=== PATIENT | female | born 1955 | race Caucasian/White ===

== ENCOUNTER 2017-02-04 11:34 | Emergency (ER) | payer MEDICARE ==
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
[2017-02-04] MEDS ORDERED: Ketorolac INJ* 30 MG/ML 1 ML VIAL IM ONE (12:51)
[2017-02-04 13:42] VITALS: BP 202/92
== END 2017-02-04 13:42 | disposition home or self-care (01) ==
LOC: UCCORT 11:34
DX: M54.2 Cervicalgia (principal); M54.5 Low back pain; G89.21 Chronic pain due to trauma; Z88.8 Allergy status to other drugs, medicaments and biological substances; F17.210 Nicotine dependence, cigarettes, uncomplicated
CPT/HCPCS: 96372; 99212; G0463; J1885

== ENCOUNTER 2017-05-07 20:50 | Emergency (ER) | payer MEDICARE ==
[2017-05-07] MEDS ORDERED: Ketorolac INJ* 60 MG/2 ML VIAL IM ONE (21:00)
--- NOTE | 2017-05-07 21:06 | UC ---
Lower Extremity/Ankle HPI - HPI Summary HPI Summary: 62 yo F states she stepped in a hole and twisted her left foot, c/o pain and inability to bear weight since the injury at approx 4:30pm. - History of Current Complaint Stated Complaint: LEFT FOOT INJURY Time Seen by Provider: 05/07/17 20:56 Hx Obtained From: Patient, Family/Health Coordinator Hx Last Menstrual Period: n/a Onset/Duration: Sudden Onset, Lasting Hours, Still Present Severity Initially: Moderate Severity Currently: Moderate Pain Intensity: 10 Pain Scale Used: 0-10 Numeric Aggravating Factor(s): Standing, Ambulation Alleviating Factor(s): Nothing Able to Bear Weight: No - Allergies/Home Medications Allergies/Adverse Reactions: Allergies Allergy/AdvReac Type Severity Reaction Status Date / Time Benzonatate AdvReac Severe Swelling Verified 05/07/17 20:59 Home Medications: Home Medications Cyanocobalamin [B-12 Compliance Injection] 1,000 mcg IJ 05/07/17 [History] Gabapentin CAP(*) [Neurontin 100 mg CAP(*)] 100 mg PO TID 05/07/17 [History Confirmed 05/07/17] PMH/Surg Hx/FS Hx/Imm Hx Previously Healthy: No - skin cancer GI/ History: Gastroesophageal Reflux - Surgical History Surgical History: Yes Surgery Procedure, Year, and Place: neck fusion csp. HYSTERECTOMY, NASAL SURGERY, FX LEFT WRIST - Family History Known Family History: Positive: Cardiac Disease, Diabetes - Social History Lives: With Family Alcohol Use: None Substance Use Type: None Smoking Status (MU): Current Every Day Smoker Type: Cigarettes Amount Used/How Often: 1/2 PPD Length of Time of Smoking/Using Tobacco: 41 yrs Have You Smoked in the Last Year: Yes Household Exposure Type: Cigarettes Review of Systems Constitutional: Negative Skin: Negative Eyes: Negative ENT: Negative Respiratory: Negative Cardiovascular: Negative Gastrointestinal: Negative Genitourinary: Negative Motor: Negative Neurovascular: Negative Musculoskeletal: Arthralgia Neurological: Negative Psychological: Negative All Other Systems Reviewed And Are Negative: Yes Physical Exam Triage Information Reviewed: Yes Appearance: Well-Appearing, Well-Nourished, Pain Distress Vital Signs: BP 156/80 noted Vital Signs Reviewed: Yes Eyes: Positive: Conjunctiva Clear ENT: Positive: Hearing grossly normal. Negative: Muffled/hoarse voice Neck: Positive: Supple Respiratory: Positive: Lungs clear, Normal breath sounds, No respiratory distress Cardiovascular: Positive: RRR, No Murmur, Pulses Normal, Brisk Capillary Refill Musculoskeletal: Positive: Strength Intact, ROM Intact, Other: - tender lat malleolus, and base 5th metatarsal; pulses, sensation intact; pain right low lumbar paraspinous Neurological: Positive: Alert, Muscle Tone Normal Psychological Exam: Normal Skin Exam: Normal Re-Evaluation - Re-Evaluation First Eval Re-Evaluation Time: 10:10 - pain improved with toradol Change: Improved Lower Extremity Course/Dx - Differential Dx/Diagnosis Differential Diagnosis/HQI/PQRI: Contusion, Fracture (Closed), Sprain, Strain Provider Diagnoses: ankle sprain, foot sprain, elevated BP without dx HTN Discharge - Discharge Plan Condition: Stable Disposition: HOME Patient Education Materials: Ankle Sprain (ED), Foot Sprain (ED) Referrals: Denilson Taylor MD [Medical Doctor] - 7 Days (if no improvement ) Jonathan Shaikh MD [Primary Care Provider] -
[2017-05-07 21:12] VITALS: BP 156/80
--- NOTE | 2017-05-07 21:53 | RAD ---
Indication: Left ankle pain. 3 views of left foot demonstrates no fracture. No other bone or joint abnormalities noted. IMPRESSION: No fracture of the left foot is noted.
--- NOTE | 2017-05-07 21:54 | RAD ---
Indication: Left ankle injury 4 views of left ankle demonstrates no fracture. No other bone or joint abnormality is noted. IMPRESSION: No fracture of the left ankle is noted.
== END 2017-05-07 22:38 | disposition home or self-care (01) ==
LOC: UCCORT 20:50
DX: S93.402A Sprain of unspecified ligament of left ankle, initial encounter (principal); S93.602A Unspecified sprain of left foot, initial encounter; W17.2XXA Fall into hole, initial encounter; R03.0 Elevated blood-pressure reading, without diagnosis of hypertension; F17.210 Nicotine dependence, cigarettes, uncomplicated
CPT/HCPCS: 96372; 99202; G0463; J1885

== ENCOUNTER 2017-12-08 19:06 | Emergency (ER) | payer MEDICARE ==
[2017-12-08 19:43] VITALS: BP 168/78
--- NOTE | 2017-12-08 19:59 | UC ---
FLU HPI - HPI Summary HPI Summary: Pt c/o gradual onset of nasal congestion, cough, chills, fatigue and generalized malaise X 2 days. - History of Current Complaint Chief Complaint: UCRespiratory Stated Complaint: FLU LIKE Time Seen by Provider: 12/08/17 19:41 Hx Last Menstrual Period: n/a ?: No Onset/Duration: Gradual Onset, Lasting Days, Still Present, Worse Since - onset Severity Currently: Moderate Severity Initially: Mild Associated Signs & Symptoms: Positive: Myalgia, Cough, Nasal Congestion, Headache Related Hx: Smoking - Allergy/Home Medications Allergies/Adverse Reactions: Allergies Allergy/AdvReac Type Severity Reaction Status Date / Time Benzonatate AdvReac Severe Swelling Verified 12/08/17 19:43 PMH/Surg Hx/FS Hx/Imm Hx Previously Healthy: Yes - Surgical History Surgical History: Yes Surgery Procedure, Year, and Place: neck fusion csp. HYSTERECTOMY, NASAL SURGERY, FX LEFT WRIST - Family History Known Family History: Positive: Cardiac Disease, Diabetes Negative: Respiratory Disease - Social History Lives: With Family Alcohol Use: None Substance Use Type: None Smoking Status (MU): Current Every Day Smoker Type: Cigarettes Amount Used/How Often: 1/2 PPD Length of Time of Smoking/Using Tobacco: 41 yrs Have You Smoked in the Last Year: Yes Household Exposure Type: Cigarettes Review of Systems Constitutional: Chills, Fatigue Skin: Negative Eyes: Negative ENT: Sinus Congestion Respiratory: Cough Cardiovascular: Negative Gastrointestinal: Negative Genitourinary: Negative Motor: Negative Neurovascular: Negative Musculoskeletal: Negative Neurological: Negative Psychological: Negative Is Patient Immunocompromised?: No All Other Systems Reviewed And Are Negative: Yes Physical Exam Triage Information Reviewed: Yes Appearance: Ill-Appearing Vital Signs: Initial Vital Signs Temp 98.6 F 12/08/17 19:39 Pulse 93 12/08/17 19:39 Resp 18 12/08/17 19:39 BP 168/78 12/08/17 19:39 Pulse Ox 96 12/08/17 19:39 Vital Signs Reviewed: Yes Eye Exam: Normal ENT Exam: Other ENT: Positive: Nasal congestion Dental Exam: Normal Neck exam: Normal Respiratory Exam: Other Respiratory: Positive: Decreased breath sounds Cardiovascular Exam: Normal Musculoskeletal Exam: Normal Neurological Exam: Normal Psychological Exam: Normal Skin Exam: Normal Flu Course/Dx - Differential Dx/Diagnosis Differential Diagnosis/HQI/PQRI: Bronchitis, Upper Respiratory Infection Provider Diagnoses: URI. Cough Discharge - Discharge Plan Condition: Stable Disposition: HOME Prescriptions: Dextromethorphan HBr [Tussin Cough] 15 mg PO Q6H PRN #100 ml PRN Reason: Cough Patient Education Materials: Viral Syndrome (ED), Cold Symptoms (ED) Referrals: Jonathan Shaikh MD [Primary Care Provider] - If Needed
== END 2017-12-08 20:23 | disposition home or self-care (01) ==
LOC: UCCORT 19:06
DX: J06.9 Acute upper respiratory infection, unspecified (principal); R05 Cough; Z72.0 Tobacco use
CPT/HCPCS: 87502; 99212; G0463

== ENCOUNTER 2018-02-05 10:25 | Day surgery (SDC) | payer MEDICARE ==
[~2018-02-05 10:25] MED LIST: Buffered Lidocaine 0.9% SYRIN* 5 ML/SYR SYRINGE INTRADERM ONE; Famotidine IV* 10 MG/ML 2 ML (20 mg) IV ONE
[2018-02-05] MEDS ORDERED: ceFAZolin 2 GM in 100 MLS NS (*) BAG IVPB ONE (10:27)
[2018-02-05] MEDS ORDERED: Buffered Lidocaine 0.9% SYRIN* 5 ML/SYR SYRINGE ONE (10:27)
[2018-02-05] MEDS ORDERED: Famotidine IV* 10 MG/ML 2 ML (20 mg) ONE (10:27)
[2018-02-05] MEDS ORDERED: Dexamethasone IV* 4 MG/ML 1 ML (4 MG) ONE (11:39)
[2018-02-05] MEDS ORDERED: Lidocaine 1%* 5 ML VIAL ONE ×2 (11:40→12:42)
[2018-02-05] MEDS ORDERED: Bupivacaine 0.25% SDV* 30 ML ONE (11:41)
[2018-02-05] MEDS ORDERED: Midazolam* 1 MG/ML 5 ML VIAL (5 MG) ONE (11:57)
[2018-02-05] MEDS ORDERED: fentaNYL* 50 MCG/ML 2 ML VIAL (100 MCG VIAL) ONE (12:10)
[2018-02-05] MEDS ORDERED: Lidocaine 2% PF * 5 ML VIAL ONE (12:13)
[2018-02-05] MEDS ORDERED: Propofol* 10 MG/ML 20 ML BTL IV PUSH ONE (12:13)
[2018-02-05] MEDS ORDERED: Ondansetron INJ* 2 MG/ML VIAL ONE (12:13)
[2018-02-05] MEDS ORDERED: Ketorolac INJ* 30 MG/ML 1 ML VIAL ONE (12:13)
[2018-02-05] MEDS ORDERED: ceFAZolin 1 GM VIAL(*) ONE (13:24)
[2018-02-05] MEDS ORDERED: oxyCODONE/Acetamin 5/325 MG* TAB PO PRN (13:58)
[2018-02-05] MEDS ORDERED: Naloxone* 0.4 MG/ML 1 ML VIAL IV PRN (13:58)
[2018-02-05] MEDS ORDERED: DiMENhydriNATE IV* 50 MG/ML VIAL IV PUSH PRN (13:58)
[2018-02-05 14:13] VITALS: BP 170/89
--- NOTE | 2018-02-05 22:17 | RAD ---
CPT II Codes: 6045F. Indication: Left fourth metatarsal head removal. Fluoroscopic services provided for referring physician. 6.2 seconds of fluoroscopy time was used. 7 spot images of the left foot demonstrates resection of the fourth metatarsal head. IMPRESSION: Fluoroscopic services provided for referring physician.
--- NOTE | 2018-02-05 22:17 | OP ---
DATE OF OPERATION: 02/05/18 - [facility] DATE OF : 59 SURGEON: Luciano Allan DPM ANESTHESIA: MAC local. PRE-OP DIAGNOSIS: Left 4th plantarflexed metatarsal. POST-OP DIAGNOSIS: Left 4th plantarflexed metatarsal. OPERATIVE PROCEDURE: Left 4th metatarsal head resection. ESTIMATED BLOOD LOSS: Less than 10 cc. IV FLUIDS: LR 1000 cc. DRAINS: None. SPECIMENS: Metatarsal head from the left fourth metatarsal. DESCRIPTION OF PROCEDURE: The patient was taken to the operating room and was placed in a supine position. Time-out was called and OR team agreed. The left foot was then blocked with 8 cc of 1% lidocaine plain in a [place] block fashion at the base of the left 4th metatarsal. The foot was then prepped and draped in a sterile manner. There was some question whether this site at the intractable plantar keratoma was directly under the 3rd or the 4th, it was in book as the 4th and to confirm it I went ahead and used a C-arm and an 18-gauge spinal needle. The 18-gauge spinal needle was introduced dorsally and down into the lesion which was localized around the submetatarsal area. The tip of the spinal needle went all the way to and through past the plantar keratoma plantarly. I then used a C-arm to confirm the site and it is indeed the submetatarsal 4 area that is the location in question, this confirms the site. I went ahead and exsanguinated the foot with an Esmarch bandage and the cuff was then inflated to 250 mmHg. I made a linear incision right over the 4th metatarsophalangeal joint followed by sharp and blunt dissection starting from the epidermis, dermis, subcutaneous tissue, down to the capsule. The capsule was identified and a linear incision was made over the capsule, careful not to transect the tendons. The tendons were left intact and then retracted away from the site. I went ahead and dissected down to the periosteum and the neck of the 4th metatarsal. To confirm the site, I went ahead and shot under C-arm that it is indeed the 4th metatarsal that we are operating on. I went ahead and cut the head of the 4th metatarsal at the level of the neck with a sagittal saw. This completes the procedure. The wound was then irrigated and once again confirmed it via C-arm that it was the 4th metatarsal head that was removed. I went ahead and closed the wound in a layered anatomical fashion. I used the combination of 3-0 Vicryl for the deeper subcutaneous tissues as well as the capsular closing and the 4-0 nylon for the skin. I injected a combination of 0.25% Marcaine plain and 8 mg of dexamethasone phosphate. I used about 7 cc. The cuff was deflated and the foot was then placed in a dry sterile dressing. The patient was taken to the recovery in stable condition, was later discharged in stable condition as well. I will see her in the office on Thursday. [id number]/CPS #: [id number] MTDD
== END 2018-02-05 14:40 | disposition home or self-care (01) ==
LOC: OR 10:25
PROVIDERS: ATTEND Podiatrist
DX: M21.6X2 Other acquired deformities of left foot (principal); I10 Essential (primary) hypertension; G47.33 Obstructive sleep apnea (adult) (pediatric); F17.210 Nicotine dependence, cigarettes, uncomplicated
CPT/HCPCS: 76001; 88304; 88311; J0690; J1100; J1885; J2250; J2405; J2704; J3010

== ENCOUNTER 2021-02-28 15:40 | Inpatient (IN) ==
[2021-02-28] MEDS ORDERED: Heparin 1,000 UNIT/ML 10 ml (10,000 UNITS) CATHLAB/DIALYSIS ONE (15:46)
[2021-02-28] MEDS ORDERED: VERAPAMIL 2.5 MG/ML 2 ML VIAL ** 5 mg/2 ml ONE (15:46)
[2021-02-28] MEDS ORDERED: Lidocaine 1% VIAL 10 MG/ML VIAL ONE (15:47)
[2021-02-28] MEDS ORDERED: Iohexol 350 (CONTRAST) 200 ML MDV IV ONE ×2 (15:47→16:00)
[2021-02-28] MEDS ORDERED: nitroGLYCERIN DRIP 0 MCG/0 ML BTL ONE (15:47)
[2021-02-28] MEDS ORDERED: Heparin 2 UNITS/ML 1000 mls 2,000 ML IV ONE (15:47)
[2021-02-28] MEDS ORDERED: Heparin - STEMI 5,000 UNITS/ML 1 ml VIAL IV ONE (15:47)
[2021-02-28] MEDS ORDERED: Midazolam 5 mg/5 ml VIAL 1 mg/ml 5 ml VIAL (5 mg) ONE (15:49)
[2021-02-28] MEDS ORDERED: diPHENhydraMINE IV 50 MG/ML 1 ml VIAL (BENADRYL) ONE (15:49)
[2021-02-28] MEDS ORDERED: Bivalirudin 250 MG VIAL ONE ×2 (16:12→17:13)
[2021-02-28] MEDS ORDERED: HYDROmorphone 1 MG/1 ML SYRINGE ONE (16:12)
[2021-02-28] MEDS ORDERED: Adenosine 3 MG/ML 2 ml VIAL (6 mg) ONE (16:16)
[2021-02-28 16:18] LABS: ABS Basophils 0.1 10^3/ul (0-0.2); ABS Eosinophils 0.2 10^3/ul (0-0.6); ABS Lymphocytes 2.7 10^3/ul (1.0-4.8); ABS Monocytes 0.6 10^3/ul (0-0.8); ABS Neutrophils 4.9 10^3/ul (1.5-7.7); Eosinophil % 1.8 %; Hematocrit 41 % (35-47); Hemoglobin 13.4 g/dL (12.0-16.0); Lymphocyte % 32.3 %; Mean Corpuscular HGB Conc 33 g/dL (31-36); Mean Corpuscular Hemoglobin 30 pg (27-31); Mean Corpuscular Volume 90 fL (80-97); Mean Platelet Volume 8.6 fL (7.4-10.4); Platelet Count 211 10^3/uL (150-450); Red Blood Count 4.53 10^6 /uL (3.70-4.87); Red Cell Distribution Width 15 % (10-15); White Blood Count 8.5 10^3/uL (3.5-10.8)
[2021-02-28] MEDS ORDERED: Phenylephrine IV 10 MG/ML 1 ml VIAL ONE (16:31)
[2021-02-28] MEDS ORDERED: Nitro 2% OINT (Nitroglycerin) 1 INCH/PAK ONE (16:35)
[2021-02-28 16:36] LABS: Troponin I 0.01 ng/mL (<0.03)
[2021-02-28 16:38] LABS: CKMB ng/mL 1.5 ng/mL (0.6-6.3)
[2021-02-28] MEDS ORDERED: Ondansetron 4 mg VIAL 2 MG/ML 2 ml VIAL ONE (16:40)
[2021-02-28 16:48] LABS: Activated Partial Thrombo Time 27.1 seconds (26.0-38.0); INR 0.96 (0.82-1.09)
[2021-02-28] MEDS ORDERED: Atropine 0.1 MG/ML 10 ml SYR (1 mg) ONE (16:52)
[2021-02-28 16:58] LABS: Albumin 4.1 g/dL (3.2-5.2); Albumin/Globulin Ratio 1.5 (1-3); Calcium 8.8 mg/dL (8.6-10.3); EGFR African American 76.3 (>60); Globulin 2.7 g/dL (2-4); Potassium 3.6 mmol/L (3.5-5.0); Total Bilirubin 0.3 mg/dL (0.2-1.0); Total Protein 6.8 g/dL (6.4-8.9)
[2021-02-28] MEDS ORDERED: Bivalirudin 250 MG in NS 0.9% 50 ML 50 ML IV SCH (18:00)
[2021-02-28 19:08] LABS: Troponin I 2.85 ng/mL (<0.03)
[2021-02-28] MEDS ORDERED: Ondansetron 4 mg VIAL 2 MG/ML 2 ml VIAL IV ONE (19:34)
[2021-02-28] MEDS ORDERED: Potassium Chlor 20 meq TAB.ER PO ONE (23:40)
[2021-03-01 00:22] LABS: Anion Gap 7 mmol/L (2-11); BUN/Creatinine Ratio 11.7 (8-20); Blood Urea Nitrogen 9 mg/dL (6-24); CO2 Carbon Dioxide 25 mmol/L (22-32); Calcium 8.9 mg/dL (8.6-10.3); Chloride 107 mmol/L (101-111); EGFR African American 91.3 (>60); EGFR Non-African American 75.5 (>60); Glucose 115 mg/dL (70-100); Magnesium 1.9 mg/dL (1.9-2.7); Sodium 139 mmol/L (135-145)
[2021-03-01 00:33] LABS: Troponin I 21.23 ng/mL (<0.03)
[2021-03-01 05:23] LABS: ABS Eosinophils 0.1 10^3/ul (0-0.6); ABS Lymphocytes 2.5 10^3/ul (1.0-4.8); ABS Monocytes 0.8 10^3/ul (0-0.8); ABS Neutrophils 5.1 10^3/ul (1.5-7.7); Eosinophil % 1.3 %; Hematocrit 37 % (35-47); Hemoglobin 12.2 g/dL (12.0-16.0); Lymphocyte % 29.8 %; Mean Corpuscular HGB Conc 33 g/dL (31-36); Mean Corpuscular Hemoglobin 30 pg (27-31); Mean Corpuscular Volume 90 fL (80-97); Mean Platelet Volume 8.4 fL (7.4-10.4); Platelet Count 184 10^3/uL (150-450); Red Blood Count 4.09 10^6 /uL (3.70-4.87); Red Cell Distribution Width 15 % (10-15); White Blood Count 8.6 10^3/uL (3.5-10.8)
[2021-03-01 05:34] LABS: Anion Gap 7 mmol/L (2-11); Blood Urea Nitrogen 9 mg/dL (6-24); CO2 Carbon Dioxide 23 mmol/L (22-32); Calcium 8.7 mg/dL (8.6-10.3); Chloride 109 mmol/L (101-111); Cholesterol 225 mg/dL; EGFR African American 94.1 (>60); EGFR Non-African American 77.8 (>60); Glucose 116 mg/dL (70-100); HDL Cholesterol 34.1 mg/dL; LDL Cholesterol 154 mg/dL; Potassium 4.1 mmol/L (3.5-5.0); Sodium 139 mmol/L (135-145); Triglycerides 184 mg/dL
[2021-03-01 05:38] LABS: Troponin I 22.12 ng/mL (<0.03)
[2021-03-01 07:56] LABS: Magnesium 1.9 mg/dL (1.9-2.7); Phosphorus 3.5 mg/dL (2.5-5.0)
[2021-03-01] MEDS ORDERED: Magnesium Sulfate 2 gm BAG 2 GM/50 ML BAG IVPB ONE (09:42)
[2021-03-01] MEDS: Heparin 5000 UNITS/ML 1 mL VIAL SUBCUT SCH (20:19)
[2021-03-02] MEDS: Heparin 5000 UNITS/ML 1 mL VIAL SUBCUT SCH (09:11)
[2021-03-02 10:59] LABS: BUN/Creatinine Ratio 13.3 (8-20); EGFR African American 94.1 (>60); EGFR Non-African American 77.8 (>60); Potassium 3.6 mmol/L (3.5-5.0)
[2021-03-02 16:07] VITALS: BP 151/73
== END 2021-03-02 17:24 | disposition home or self-care (01) | DRG 247 ==
LOC: ED 15:40 → CHICARD 16:03 → ICU 17:42 → MEDTELE 03-01 09:43
PROVIDERS: ADMIT Internal Medicine Cardiovascular Disease; ATTEND Internal Medicine Cardiovascular Disease